=== PATIENT | female | born 1925 | race Caucasian/White ===

== ENCOUNTER 2017-05-17 08:47 | Emergency (ER) | payer MEDICARE, OTHER ==
[~2017-05-17] VITALS: Ht 144.8 cm; Wt 42.6 kg
[~2017-05-17 08:47] MED LIST: AMLODIPINE BESY10 MG PO; ASPIR 8181 MG PO; CALTRATE 600 W1 EACH PO; CENTRUM SILVER1 EAC3 PO; DIOVAN160 MG PO; DOXYCYCLINE HY100 MG PO; LIPITOR20 MG PO; METFORMIN HCL500 MG PO; METOPROLOL TART25 MG PO; ULTRAM50 MG PO; [UNRECOGNIZED DRUG - REMARK]
--- OUTSIDE RECORDS SUMMARY | 2017-05-17 08:49 | XMS REPORT ---
[facility] Address Unknown Phone Unavailable Care Team Providers Care Triage Technician Name Role Phone DOMINGUEZ LOCKWOOD Unavailable Unavailable Problems This patient has no known problems. Allergies, Adverse Reactions, Alerts This patient has no known allergies or adverse reactions. Medications This patient has no known medications. Results Test Description Test Time Test Comments Text Results Atomic Results Result Comments HUMERUS LEFT 2+VIEWS [place] [id number] Patient Name: PALOMO HILL MR #: [id number] : 1925 Age/Sex: 89/F Req # : [id number] [facility] Physician: Ordered by: DOMINGUEZ LOCKWOOD MD Report #: [id number] Location: ER Room/Bed: Procedure: [id number] DX/HUMERUS LEFT 2+VIEWS Exam Date: 11/28/16 Exam Time: 1000 REPORT STATUS: Signed Humerus left CPT code: 72240 Indication: Trauma, pain. Technique: 2 views of left humerus obtained. Comparison: Chest x-ray 06/01/2016. Findings: There is a fracture through the surgical neck of the left humerus without dislocation of the glenohumeral joint. Remainder of the humerus is intact. The visualized portions of the acromion, scapula, and clavicle are intact. Visualized portions of the ribs demonstrate no displaced fracture. A spherical radiodensity in the base of the left chest measures 3 mm and was not present on previous exam. Visualized portion of the proximal forearm is intact. IMPRESSION: Left humeral fracture as described above. No dislocation of the humeral head. Signed by: Dr. Smiley Velasco MD on 11/28/2016 11:15 AM Dictated By: SMILEY VELASCO MD 14 Transcribed By: JAYNE on 11/28/161114 COPY TO: DOMINGUEZ LOCKWOOD MD FOREARM LEFT 2 VIEW [facility] [address] [address] Patient Name: PALOMO HILL MR #: [id number] : 1925 Age/Sex: 89/F Req # : [id number] Adm Physician: Ordered by: DOMINGUEZ LOCKWOOD MD Report #: [id number] Location: ER Room/Bed: Procedure: [id number] DX/FOREARM LEFT 2 VIEW Exam Date: 11/28/16 Exam Time : 1000 REPORT STATUS: Signed Forearm CPT code: 87972 Indication: Trauma Technique: A.P. and lateral views of the left forearm obtained. Findings: The bones are diffusely demineralized. The carpal bones are intact and normal in alignment. Distal humerus is normal. No joint effusion. No foreign bodies in the soft tissues. IMPRESSION: No acute traumatic pathology. Signed by: Dr. Smiley Velasco MD on 11:16 AM Dictated By: SMILEY VELASCO MD 15 Transcribed By: JAYNE on 01/04 COPY TO: DOMINGUEZ LOCKWOOD MD HAND 3+ VIEWS LEFT [facility] [address] [address] Patient Name: PALOMO HILL MR #: [id number] : 1925 Age/Sex: 89/F Req # : [id number] Adm Physician: Ordered by: DOMINGUEZ LOCKWOOD MD Report #: [id number] Location: ER Room/Bed: Procedure: [id number] DX/HAND 3+ VIEWS LEFT Exam Date: 11/28/16 Exam Time : 1000 REPORT STATUS: Signed Hand complete CPT code: 47429 Indication: Fall Technique: Three views of the left hand obtained Comparison: None. Findings: The bones are diffusely demineralized. No acute fracture of the distal radius or ulna. There is a healed, ununited fracture of the ulnar styloid process. Radiocarpal joint is narrowed. There are calcifications of the triangular fibrocartilage complex. Carpal bones appear generally well aligned. There is narrowing and sclerosis of the carpal metacarpal joint. The digits are intact. There is narrowing and osteophytosis of the proximal and distal IP joints of digits 2 through 5 and the IP joint of digit 1. Sharply marginated erosion is along the radial aspect of the proximal phalanx of the fourth digit. There is soft tissue swelling along the ulnar aspect of the hand. No radiopaque foreign bodies in the soft tissues. IMPRESSION: No acute osseous injury. Extensive degenerative changes as described above. Component of erosive arthritis is suspected. Signed by: Dr. Smiley Velasco MD on 11/28/2016 11:25 AM Dictated By: SMILEY VELASCO MD 1125 Transcribed By: JAYNE on 11/28/16 1125 COPY TO: DOMINGUEZ LOCKWOOD MD
[2017-05-17 09:40] LABS: BASOPHILS % 0.5 % (0.0-1.0); EOSINOPHILS # (AUTO) 0.2 (0.0-0.4); EOSINOPHILS % 2.7 % (0.0-6.0); HEMATOCRIT 37.7 % (34.2-44.1); HEMOGLOBIN 12.5 g/dL (12.0-16.0); LYMPHOCYTES # (AUTO) 1.4 (1.0-3.2); LYMPHOCYTES % 18.3 % (18.0-39.1); MEAN CORPUSCULAR HEMOGLOBIN 31.3 pg (28-32); MEAN CORPUSCULAR HGB CONC 33.2 g/dL (31-35); MEAN CORPUSCULAR VOLUME 94.5 fL (81-99); MONOCYTES # (AUTO) 0.5 (0.2-0.8); MONOCYTES % 7.3 % (4.4-11.3); NEUTROPHILS # (AUTO) 5.3 (2.1-6.9); NEUTROPHILS % 70.8 % (38.7-80.0); PLATELET COUNT 103 x10e3/uL (140-360); RED BLOOD COUNT 3.99 x10e6/uL (3.6-5.1); RED CELL DISTRIBUTION WIDTH 13.7 % (11.7-14.4)
[2017-05-17 09:50] LABS: INR 1.04; PROTHROMBIN TIME 12.8 seconds (11.9-14.5)
[2017-05-17 09:51] LABS: PARTIAL THROMBOPLASTIN TIME 22.4 seconds (23.8-35.5)
[2017-05-17 09:55] LABS: ALBUMIN 3.3 g/dL (3.5-5.0); ALBUMIN/GLOBULIN RATIO 0.9 (0.8-2.0); ANION GAP 16.8 mmol/L (8-16); CALCIUM 9.9 mg/dL (8.4-10.2); CREATININE, SERUM 1.18 mg/dL (0.57-1.11); POTASSIUM 4.8 mmol/L (3.5-5.1)
[2017-05-17] MEDS ORDERED: BACITRACIN ZINC 0.9GM TP SCH (10:00)
[2017-05-17 13:24] VITALS: BP 181/89
[2017-05-18] MEDS ORDERED: BACITRACIN ZINC 15 GM OINT TOP SCH (09:00)
== END 2017-05-17 13:37 | disposition home or self-care (01) ==
LOC: ER 08:47
DX: S51.801A Unspecified open wound of right forearm, initial encounter (principal); R60.0 Localized edema; W06.XXXA Fall from bed, initial encounter; Y93.84 Activity, sleeping; Y92.003 Bedroom of unspecified non-institutional (private) residence as the place of occurrence of the external cause
CPT/HCPCS: 36415; 80053; 85025; 85610; 85730; 93971; 99284